=== PATIENT | female | born 1955 | race African-American/Black ===

== ENCOUNTER 2019-05-28 14:41 | Emergency (ER) | payer MEDICARE, OTHER ==
[~2019-05-28] VITALS: Ht 160 cm; Wt 92.5 kg
[~2019-05-28 14:41] MED LIST: AMLODIPINE BESYL5 MG ORAL; BACTRIM DS TAB1 EAC1 ORAL; BENADRYL25 MG ORAL; CILOXAN 0.3% O1 DROP RIGHT EYE; FLAGYL500 MG ORAL; HYDROCHLOROTHIA25 MG ORAL; NORCO 5-325 TA1 EACH PO; PEPCID20 MG ORAL; PREDNISONE50 MG ORAL
--- NOTE | 2019-05-28 15:12 | NUR ---
ED Nurse Note: PT walked in to ED stating she was referred by Dr. Samson to r/o PNA. pt reports having runny nose, dry cough, subjective fever and chills x 2 days. denies n/v/d
[2019-05-28 15:16] VITALS: BP 140/76
--- NOTE | 2019-05-28 15:51 | NUR ---
ED Nurse Note: went to x ray
--- NOTE | 2019-05-28 16:04 | NUR ---
ED Nurse Note:back from x ray
--- NOTE | 2019-05-28 16:32 | Emergency Room Report ---
History of Present Illness General Chief Complaint: Upper Respiratory Illness Source: Patient Present Illness HPI 63-year-old female with history of hypertension currently controlled with medication here complaining of 3 days of cough and congestion. Patient reports that she went to her primary care doctor and blood pressure was 180/118 however patient denies any chest pain chest pain pressure. Denies headache and dizziness. Complains of sinus pain and pressure x3 days. Denies blurry vision , headache and dizziness. Has not taken medication for symptom relief. Blood pressure appears to be stable and within normal limits upon arrival to ED. Patient is in no distress. Primary care doctor sent her here to rule out pneumonia. Patient denies fever and chills, recent travel, abdominal pain, nausea vomiting. Denies tobacco smoke, marijuana use, vaping, alcohol intake. Allergies: Coded Allergies: No Known Allergies (Unverified , 01/21/12) Patient History Past Medical History: see triage record Past Surgical History: none Pertinent Family History: none Now: No Immunizations: UTD Reviewed Nursing Documentation: PMH: Agreed; PSxH: Agreed Nursing Documentation-PMH Past Medical History: No History, Except For Hx Cardiac Problems: No Hx Hypertension: Yes Hx Pacemaker: No Hx Asthma: No Hx COPD: No Hx Diabetes: No Hx Cancer: No Hx Gastrointestinal Problems: No Hx Dialysis: No History Of Psychiatric Problem: No Hx Neurological Problems: No Hx Cerebrovascular Accident: No Hx Seizures: No Review of Systems All Other Systems: negative except mentioned in HPI Physical Exam Vital Signs Date Time Temp Pulse Resp B/P (MAP) Pulse Ox O2 Delivery O2 Flow Rate FiO2 05/28/19 15:07 98.6 104 18 144/76 (98) 99 Room Air Sp02 EP Interpretation: reviewed, normal General Appearance: no apparent distress, alert, GCS 15, non-toxic Head: normocephalic, atraumatic Eyes: bilateral eye normal inspection, bilateral eye PERRL ENT: hearing grossly normal, normal pharynx, no angioedema, normal voice Neck: full range of motion, supple, thyroid normal, no meningismus, supple/symm /no masses Respiratory: chest non-tender, lungs clear, normal breath sounds, no rhonchi, no respiratory distress, no retraction, no accessory muscle use, no wheezing Cardiovascular #1: regular rate, rhythm, no edema Gastrointestinal: non tender, soft Genitourinary: no CVA tenderness Musculoskeletal: back normal, digits/nails normal, no calf tenderness Neurologic: alert, motor strength/tone normal, oriented, oriented x3, sensory intact, responsive, speech normal Psychiatric: judgement/insight normal, memory normal, mood/affect normal, no suicidal/homicidal ideation Skin: no rash Lymphatic: no adenopathy Medical Decision Making PA Attestation All my diagnosis and treatment plans were reviewed ad discussed with my supervising physician Dr. Kingsley Diagnostic Impression: Primary Impression: Pneumonitis ER Course 63-year-old female with history of hypertension currently controlled with medication here complaining of 3 days of cough and congestion. Patient reports that she went to her primary care doctor and blood pressure was 180/118 however patient denies any chest pain chest pain pressure. Denies headache and dizziness. Complains of sinus pain and pressure x3 days. Denies blurry vision , headache and dizziness. Has not taken medication for symptom relief. Blood pressure appears to be stable and within normal limits upon arrival to ED. Patient is in no distress. Primary care doctor sent her here to rule out pneumonia. Patient denies fever and chills, recent travel, abdominal pain, nausea vomiting. Denies tobacco smoke, marijuana use, vaping, alcohol intake. Ddx considered but are not limited to: bronchitis, PNA, URI viral, bacterial bronchitis, pneumonitis Vital signs: are WNL, pt. is afebrile H&PE are most consistent with: Pneumonitis ORDERS: Chest x-ray, azithromycin, guaifenesin, albuterol ED INTERVENTIONS: None required at this time. DISCHARGE: At this time pt. is stable for d/c to home. Will provide printed patient care instructions, and any necessary prescriptions. Care plan and follow up instructions have been discussed with the patient prior to discharge. This time I informed patient significant does not have any chest pain, her blood pressure is within normal limits, further work-up is not needed. However advised her to return to the emergency room immediately if chest pain, headache and dizziness, or any new symptoms. Follow-up with primary care provider, pneumonia was ruled out. Due to patient's presentation and posttussive chest pressure patient to be symptomatically treated with antibiotics for pneumonitis. Chest X-Ray Diagnostic Results Chest X-Ray Diagnostic Results : Chest X-Ray Ordered: Yes # of Views/Limited/Complete: 1 View Indication: Other - cough EP Interpretation: Yes PA Xray: Interpretation reviewed, by supervising MD, and agrees with findings. Interpretation: no consolidation, no effusion, no pneumothorax, no acute cardiopulmonary disease Impression: No acute disease Electronically Signed by: Leandro Vivar PA-C Last Vital Signs Date Time Temp Pulse Resp B/P (MAP) Pulse Ox O2 Delivery O2 Flow Rate FiO2 05/28/19 15:16 98.6 99 18 140/76 99 Room Air Disposition: HOME, SELF-CARE Condition: Stable Scripts Albuterol Sulfate (VENTOLIN HFA) 18 Gm Hfa.aer.ad 2 PUFFS INH EVERY 6 HOURS, #18 GM 0 Refills Prov: Leandro Richard 05/28/19 Guaifenesin* (GUAIFENESIN*) 100 Mg/5 Ml Liquid 5 ML ORAL Q6H, #120 ML 0 Refills Prov: Leandro Richard 05/28/19 Azithromycin* (ZITHROMAX*) 250 Mg Tablet 250 MG ORAL DAILY, #6 TAB 0 Refills Take two tables once daily for 1 day, then one tablet once daily for 4 days. Prov: Leandro Richard 05/28/19 Patient Instructions: Pneumonitis Additional Instructions: Take medication as directed, follow-up with your primary care provider, increase oral hydration, if worsening symptoms return to the emergency room at this time no signs of pneumonia noted Leandro Richard May 28, 2019 16:32
[2019-05-28] MEDS ORDERED: VENTOLIN HFA18 GM INH (16:40)
[2019-05-28] MEDS ORDERED: GUAIFENESI100 MG/5 M ORAL (16:40)
[2019-05-28] MEDS ORDERED: ZITHROMAX250 MG ORAL (16:40)
--- NOTE | 2019-05-28 16:45 | Diagnostic Imaging Report ---
Indication: Cough Technique: One view of the chest Comparison: 09/17/2010 Findings: Lungs and pleural spaces are clear. Heart size is normal. No significant interim change Impression: No acute process
[2019-05-28 16:48] VITALS: BP 132/84
--- NOTE | 2019-05-28 16:48 | NUR ---
ER DISCHARGE NOTE: Patient is cleared to be discharged per ERMD, pt is aox4, on room air, with stable vital signs. pt was given dc and prescription instructions, pt was able to verbalize understanding, pt id band removed without complications. pt is able to ambulate with steady gait. pt took all belongings.
== END 2019-05-28 16:40 | disposition home or self-care (01) ==
LOC: EMR 16:35
DX: J18.9 Pneumonia, unspecified organism (principal); I10 Essential (primary) hypertension
CPT/HCPCS: 71045; 99283